=== PATIENT | male | born 1990 | race Hispanic/Latino ===

== ENCOUNTER 2023-03-29 00:47 | Emergency (ER) | payer SELFPAY ==
[2023-03-29] MEDS ORDERED: Fluorescein Opthalmic Strip ONE (02:21)
[2023-03-29] MEDS ORDERED: Tetracaine 0.5% PF 4 ML BOT ONE (02:21)
== END 2023-03-29 03:00 | disposition home or self-care (01) ==
LOC: CSHERS 00:47
DX: T15.02XA Foreign body in cornea, left eye, initial encounter (principal)
CPT/HCPCS: 65220